=== PATIENT | male | born 1945 | race Caucasian/White ===

== ENCOUNTER 2019-01-04 12:16 | Emergency (ER) | payer MEDICARE, MEDICAID ==
[~2019-01-04] VITALS: Ht 177.8 cm; Wt 87.0 kg
[~2019-01-04 12:16] MED LIST: ACYCLOVIR800 MG PO; BLOOD GLUCOSE TEST S SC; COREG12.5 MG PO; FLEXERIL5 M1 PO; FLUARIX QUADRIV1 IN1 IM; FLUARIX QUADRIV1 INJ IM; LANCETS 30G30 G XX; LIPITOR20 MG; LIPITOR20 MG PO; METFORMIN500 MG PO; MULTI VIT; PNEUMOVAX 23 IM; PREVACID30 M2 PO; PRILOSEC20 MG; TARKA1 TA1; TRAMADOL HCL50 MG PO; TRUETEST STRIPS EX; TRUETEST STRIPS XX; VIAGRA100 MG PO; ZOSTAVAX IM; [UNRECOGNIZED DRUG - OTHER] XX
[2019-01-04 15:23] LABS: HEMATOCRIT 41.9 % (39.0-50.0); HEMOGLOBIN 14.2 g/dl (14.0-18.0); IMMATURE GRANULOCYTES 0.5 % (0.0-5.0); MEAN CELL VOLUME 91.7 fL CALC (80.0-100.0); MEAN CORPUSCULAR HGB 31.1 pG CALC (26.0-32.0); MEAN CORPUSCULAR HGB CONC 33.9 g/L CALC (32.0-36.0); NEUT# 7.3 thou/uL (1.82-7.42); RED BLOOD COUNT 4.57 mill/uL (4.70-6.10); RED CELL DISTRI WIDTH 11.9 % (11.5-15.5)
[2019-01-04 15:25] LABS: URINE BILIRUBIN - DIPSTICK NEGATIVE (NEGATIVE); URINE BLOOD DIPSTICK NEGATIVE (NEGATIVE); URINE COLOR YELLOW; URINE GLUCOSE - DIPSTICK NEGATIVE (NEGATIVE); URINE KETONE NEGATIVE (NEGATIVE); URINE PROTEIN - DIPSTICK NEGATIVE (NEG-TRACE)
[2019-01-04 15:31] LABS: URINE LEUK ESTERASE SMALL (NEGATIVE); URINE NITRITE - DIPSTICK POSITIVE (Negative)
[2019-01-04 15:35] LABS: ALBUMIN 4.5 g/dL (3.2-5.0); ALKALINE PHOSPHATASE 51 u/l (38-126); ANION GAP 16 (6-22 (CALC)); BILIRUBIN, TOTAL 1.1 mg/dL (0.0-1.4); BUN 13 mg/dL (8-23); BUN/CREATININE RATIO 17 (12-20 (CALC)); CARBON DIOXIDE 24 mmol/l (22-30); CHLORIDE 97 mmol/l (95-108); CREATININE 0.8 mg/dL (0.7-1.3); GFR > 60 ML/MIN (>=60 (CALC)); GFR FOR AFR.AMER. > 60 ML/MIN (>=60 (CALC)); LIPASE 35 u/l (23-300); POTASSIUM 4.1 mmol/l (3.5-5.1); SGOT/AST 20 u/l (19-48); SODIUM 134 mmol/l (137-146); TOTAL PROTEIN 7.2 g/dL (6.3-8.2)
[2019-01-04 15:39] LABS: URINE RBC 0-2 RBC/hpf (0-5)
[2019-01-04] MEDS ORDERED: HYDROCO/APAP1 TA9 PO (17:56)
[2019-01-04] MEDS ORDERED: CEPHALEXIN500 M1 PO (17:56)
[2019-01-04] MEDS ORDERED: TAMSULOSIN0.4 MG PO (17:56)
[2019-01-04 18:20] VITALS: BP 176/76
== END 2019-01-04 18:24 | disposition home or self-care (01) ==
LOC: ED 12:16
PROVIDERS: Family Medicine
DX: N13.6 Pyonephrosis (principal); B95.2 Enterococcus as the cause of diseases classified elsewhere; R10.812 Left upper quadrant abdominal tenderness; R30.0 Dysuria; R35.0 Frequency of micturition; R10.9 Unspecified abdominal pain
CPT/HCPCS: Q9967